=== PATIENT | male | born 1960 | race Caucasian/White ===

== ENCOUNTER 2019-10-15 11:49 | Outpatient (CLI) | payer BC, SELFPAY ==
--- NOTE | 2019-10-15 11:56 | USCV_ITS ---
Freddie Gardiner Age: 58 Gender: M : 1960 Exam Date: 10/15/2019 12:08 Ordering Phys: Jacques Haskins MD Technologist: Rosemary Mena [place] [facility] [place]: dvt of popliteal vein HISTORY: Lower extremity swelling. PROCEDURES: Venous duplex imaging was performed in only the left lower extremity. The following venous structures were evaluated: common femoral vein, profunda vein, proximal portion of the greater saphenous vein, superficial femoral vein, and the popliteal vein. In addition, the posterior tibial and peroneal trunk were evaluated. Serial compression, augmentation maneuvers, and spectral Doppler flow evaluation were performed. FINDINGS: Normal 2-D Doppler and augmentation and compressibility throughout the lower extremity venous structures. Additional imaging through the proximal calf veins also reveals no thrombus. Limited evaluation of the greater saphenous vein is patent with no thrombus.. CONCLUSIONS No evidence of DVT in the above-mentioned identifiable veins. Dr Helen Mcdermott MD [facility] (Electronically Signed) Final Date: 15 October 2019 19:15 S
== END 2019-10-15 11:50 | disposition home or self-care (01) ==
LOC: RAD 11:53
PROVIDERS: PCP Family Medicine; Visit Provider Family Medicine
DX: I82.432 Acute embolism and thrombosis of left popliteal vein (principal)
CPT/HCPCS: 93971

== ENCOUNTER → 2020-12-23 09:48 | Outpatient (BNVA) | payer BC, SELFPAY | PROVIDERS: PCP Family Medicine; Visit Provider Family Medicine | DX: E78.5 Hyperlipidemia, unspecified (principal); Z00.00 Encounter for general adult medical examination without abnormal findings | CPT/HCPCS: 80053; 80061; 85025 ==

== ENCOUNTER 2022-02-13 06:46 | Outpatient (CLI) | payer BC, SELFPAY ==
--- NOTE | 2022-02-13 07:00 | US_ITS ---
WS: [id number] RIGHT UPPER QUADRANT ULTRASOUND HISTORY: K76.9 - Liver disease, unspecified COMPARISON: No similar studies. Liver: 17.3 cm in length. Liver is mildly enlarged with coarse echotexture and low attenuation from h epatic steatosis. No mass or bile duct dilatation. Portal Vein: Normal hepatopetal flow with monophasic waveform. Gallbladder: Normally distended gallbladder with no stones or wall thickening. CBD: 0.5 cm Pancreas: Normal body and head. The tail is obscured by bowel gas. Right kidney: 11.9 cm in length. Normal size and echogenicity. No hydronephrosis or mass. Aorta and IVC: Unremarkable abdominal aorta and IVC. No ascites. US/US liver [id number] IMPRESSION: 1. Normal gallbladder. 2. Mild hepatic steatosis and hepatomegaly. No mass.
[2022-02-13] MEDS: iohexol 350 mg/mL 100 mL Btl IV (07:27)
--- NOTE | 2022-02-13 09:15 | CT_ITS ---
WS: [id number] CT ABDOMEN AND PELVIS WITH CONTRAST HISTORY: K76.9 - Liver disease, unspecified TECHNIQUE: Imaging performed of the abdomen and pelvis with IV contrast. Two phase imaging of the ab domen. Coronal and sagittal reformats are submitted. All CT scans at [facility] use at least one of these dose optimization techniques: automated exposure control; mA and/or kV adjustment per pa tient size (includes targeted exams where dose is matched to clinical indication); or iterative recon struction. IV CONTRAST: Omnipaque 350; 95 mL IV. Oral contrast: No DLP: 1963.99 mGy.cm COMPARISON: 05/02/2016 and 07/13/2021 Lower thorax: Lung bases are clear. Heart is normal size. Small hiatal hernia. Liver/biliary system: Mildly enlarged liver. Recently described hypervascular nodule in segment 2 is not definitely identified today. There are no suspicious masses or increasing size of the mass. Latoya l enhancement. Normal portal vein. Gallbladder: Normal. No gallstones or wall thickening. No pericholecystic fluid. Pancreas: Normal size pancreas and pancreatic duct. No adjacent inflammation. Spleen: Normal size spleen with several granulomata. Adrenal glands: Normal. Right kidney: Normal size kidney. By history partial RIGHT nephrectomy. No renal mass or obstruction. Simple cyst upper pole measures 4.0 cm. No renal obstruction. Ureter is not obstructed. Left kidney: Normal. Aorta: Mild atherosclerosis with no aneurysm. Lymphadenopathy: None. Free fluid: None. GI tract: Nondistended stomach. No small bowel obstruction. Diffuse moderate constipation. The append ix is normal. There are several scattered diverticula in the sigmoid colon with no obstruction. Abdominal wall: Fat containing umbilical hernia. Pelvis: No free fluid or adenopathy within the pelvis. Bones: No destructive bone lesions. Partial fusion of the SI joints. CT/CT abdomen pelvis w con* [id number] IMPRESSION: 1. Previously described 7 mm hypervascular mass in segment 2 is not identified as a mass today. There are no masses or abnormal enhancement within the liver. 2. Mild hepatomegaly. 3. Mild sigmoid diverticulosis without acute diverticulitis. 4. Normal appendix. 5. Stable RIGHT renal cyst. No renal mass or obstruction.
== END 2022-02-13 06:47 | disposition home or self-care (01) ==
LOC: RAD 06:48
PROVIDERS: PCP Family Medicine; Visit Provider Family Medicine
DX: K76.9 Liver disease, unspecified (principal); K76.0 Fatty (change of) liver, not elsewhere classified; K57.30 Diverticulosis of large intestine without perforation or abscess without bleeding; N28.1 Cyst of kidney, acquired
CPT/HCPCS: 74177; 76705

== ENCOUNTER → 2024-01-30 12:09 | Outpatient (BNVA) | payer BC, SELFPAY | PROVIDERS: PCP Family Medicine; Visit Provider Family Medicine | DX: E78.5 Hyperlipidemia, unspecified (principal) | CPT/HCPCS: 80053; 80061; 84153 ==